=== PATIENT | female | born 1965 | race Caucasian/White ===

== ENCOUNTER → 2020-06-05 | Outpatient (CLI) | payer BC ==
[~2020-06-05] MED LIST: ALBU2.5V8 IH; CEPH500C PO; DULO60CA6 PO; METO-247 PO; OXYC1TAB22 PO; VANC1PLA9 IV; WARF2TAB96 PO; WARF4TAB64 PO
--- NOTE | 2020-06-05 13:24 | RAD ---
EXAM: Chest, 2 views. HISTORY: Short of breath. COMPARISON: None. FINDINGS: 2 views of the chest are obtained. There is mild diffuse interstitial prominence without fr ank congestion. There is no consolidation, pleural effusion or pneumothorax. The heart is normal in s ize. IMPRESSION: Mild diffuse interstitial prominence without focal infiltrate. Electronically signed by: Gaviota De Dios MD (06/05/2020 1:21 PM) [id number]
== END ==
LOC: DXRAD 12:49
PROVIDERS: ATTEND Internal Medicine Critical Care Medicine
DX: R06.02 Shortness of breath (principal); J44.9 Chronic obstructive pulmonary disease, unspecified
CPT/HCPCS: 71046

== ENCOUNTER 2020-06-10 18:11 | Inpatient (IN) | payer BC, OTHER ==
[~2020-06-10] VITALS: Ht 154.9 cm; Wt 133.1 kg
--- NOTE | 2020-06-10 18:55 | PHYS DOC ---
Past History Past Medical History: Anxiety, Diabetes, GERD, Hypertension Past Surgical History: Other Smoking: Non-smoker Alcohol Use: None Drug Use: None Adult General Chief Complaint Chief Complaint: CELLULITIS HPI HPI Patient is a 55-year-old female with a past medical history significant for multiple PEs, DVTs on warfarin with IVC filter in place complaining of swollen right lower extremity. States that [place] she fell, from ground- level and hurt her right knee. States initially it was swollen and bruised and saw her primary care physician about this. Initially thought that it was just bruising, but then felt she had developed some lower extremity cellulitis and started on antibiotics. Patient currently on Keflex every 6 day 3. States that there is been no change in the redness and swelling and is similar to previous DVT she has had in the past. States that she was scheduled for an outpatient DVT scan next week but is worried and decided to come to the emergency department. Denies any Covid/flu symptoms. Denies headache, chest pain, shortn ess of breath, abdominal pain, nausea, vomiting, dysuria, hematuria or blood in the stool. States she is able to ambulate, it just causes her discomfort, relatively constantly, 5 out of 10 and dull and achy in nature. Review of Systems Review of Systems Review of systems otherwise unremarkable except noted in HPI. Allergies Allergies Allergies Coded Allergies Type Severity Reaction Last Updated Verified Triamterene Allergy Unknown 08/29/13 Yes hydrochlorothiazide Allergy Unknown 08/29/13 Yes hydrocodone Allergy Unknown 08/29/13 Yes Physical Exam Physical Exam Constitutional: Well developed, well nourished, no acute distress, non-toxic appearance. [] HENT: Normocephalic, atraumatic, bilateral external ears normal, oropharynx moist, no oral exudates, nose normal. [] Eyes: PERRLA, EOMI, conjunctiva normal, no discharge. [] Neck: Normal range of motion, Cardiovascular:Heart rate regular rhythm, no murmur [] Lungs & Thorax: Bilateral breath sounds clear to auscultation [] Abdomen: soft, no tenderness, no masses, no pulsatile masses. [] Skin: Warm, dry, no rash Back: No tenderness, . [] Extremities: Patient's right lower extremity has 2+ pitting edema, erythema and warmth to the level superior to the right knee, left lower extremity normal. Neurovascularly intact. Neurologic: Alert and oriented X 3, normal motor function, normal sensory function, no focal deficits noted. [] Psychologic: Affect normal, judgement normal, mood normal. [] Current Patient Data Lab Results Laboratory Tests Test 06/10/20 18:35 White Blood Count 8.9 x10^3/uL (4.0-11.0) Red Blood Count 4.81 x10^6/uL (3.50-5.40) Hemoglobin 15.8 g/dL (12.0-15.5) Hematocrit 48.0 % (36.0-47.0) Mean Corpuscular Volume 100 fL (79-100) Mean Corpuscular Hemoglobin 33 pg (25-35) Mean Corpuscular Hemoglobin Concent 33 g/dL (31-37) Red Cell Distribution Width 17.0 % (11.5-14.5) Platelet Count 200 x10^3/uL (140-400) Neutrophils (%) (Auto) 73 % (31-73) Lymphocytes (%) (Auto) 13 % (24-48) Monocytes (%) (Auto) 11 % (0-9) Eosinophils (%) (Auto) 2 % (0-3) Basophils (%) (Auto) 2 % (0-3) Neutrophils # (Auto) 6.5 x10^3uL (1.8-7.7) Lymphocytes # (Auto) 1.1 x10^3/uL (1.0-4.8) Monocytes # (Auto) 0.9 x10^3/uL (0.0-1.1) Eosinophils # (Auto) 0.2 x10^3/uL (0.0-0.7) Basophils # (Auto) 0.2 x10^3/uL (0.0-0.2) Prothrombin Time 24.9 SEC (9.4-11.4) Prothromb Time International Ratio 2.5 (0.9-1.1) D-Dimer (Allyson) 1.33 mg/L (0.00-0.50) Sodium Level 142 mmol/L (136-145) Potassium Level 4.0 mmol/L (3.5-5.1) Chloride Level 103 mmol/L (98-107) Carbon Dioxide Level 35 mmol/L (21-32) Anion Gap 4 (6-14) Blood Urea Nitrogen 21 mg/dL (7-20) Creatinine 1.2 mg/dL (0.6-1.0) Estimated GFR (Cockcroft-Gault) 46.6 BUN/Creatinine Ratio 18 (6-20) Glucose Level 130 mg/dL (70-99) Calcium Level 8.7 mg/dL (8.5-10.1) Total Bilirubin 0.3 mg/dL (0.2-1.0) Aspartate Amino Transf (AST/SGOT) 34 U/L (15-37) Alanine Aminotransferase (ALT/SGPT) 38 U/L (14-59) Alkaline Phosphatase 126 U/L (46-116) Total Protein 7.7 g/dL (6.4-8.2) Albumin 3.2 g/dL (3.4-5.0) Albumin/Globulin Ratio 0.7 (1.0-1.7) EKG EKG [] Radiology/Procedures Radiology/Procedures []FINDINGS/ IMPRESSION: 1. Postoperative changes from ACL repair identified. No significant knee joint effusion. 2. Mild tricompartmental osteoarthrosis with joint space narrowing and marginal osteophytosis. 3. Mild subcutaneous edema is noted along the knee. No acute fracture. No dislocation. Electronically signed by: Stacey Villafuerte MD (06/10/2020 7:14 PM) [facility] Ultrasound report still pending. Radiologist called and stated patient has a popliteal DVT Heart Score Risk Factors: Risk Factors: DM, Current or recent (<one month) smoker, HTN, HLP, family history of CAD, obesity. Risk Scores: Risk Factors: DM, Current or recent (<one month) smoker, HTN, HLP, family history of CAD, obesity. Course & Med Decision Making Course & Med Decision Making Patient is a 55-year-old female that presents with right lower extremity swelling and tenderness Vital signs not concerning. Physical exam noted above. Patient placed on the monitor with IV access established. Laboratory analysis notable for elevated D-dimer. INR 2.5. Ultrasound notable for popliteal DVT despite therapeutic INR on warfarin. Patient started on heparin drip. Discussed findings with patient and recommended admission for continued evaluation treatment of her DVT despite therapeutic INR as this would indicate failed outpatient treatment. Patient grateful, verbalized understanding and agreed with plan of admission. [] Dragon Disclaimer Dragon Disclaimer This electronic medical record was generated, in whole or in part, using a voice recognition dictation system. Departure Departure: Impression: Primary Impression: DVT (deep venous thrombosis) Disposition: ADMITTED INPT THIS HOSP Admitting Physician: Edgar Castellanos ([facility]) Condition: STABLE Referrals: BRIAN WEBB MD (PCP) CYNDY VELASQUEZ MD Jun 10, 2020 18:55
[2020-06-10 18:57] LABS: BASO # 0.2 x10^3/uL (0.0-0.2); BASO % 2 % (0-3); EOS # 0.2 x10^3/uL (0.0-0.7); EOS % 2 % (0-3); HEMOGLOBIN 15.8 g/dL (12.0-15.5); LYMPH # 1.1 x10^3/uL (1.0-4.8); LYMPH % 13 % (24-48); MEAN CORPUSCULAR HEMOGLOBIN 33 pg (25-35); MEAN CORPUSCULAR HGB CONC 33 g/dL (31-37); MEAN CORPUSCULAR VOLUME 100 fL (79-100); MONO # 0.9 x10^3/uL (0.0-1.1); MONO % 11 % (0-9); NEUT # 6.5 x10^3uL (1.8-7.7); NEUT % 73 % (31-73); PLATELET COUNT 200 x10^3/uL (140-400); RED BLOOD COUNT 4.81 x10^6/uL (3.50-5.40); WHITE BLOOD COUNT 8.9 x10^3/uL (4.0-11.0)
[2020-06-10 19:02] LABS: CALCIUM 8.7 mg/dL (8.5-10.1); CREATININE 1.2 mg/dL (0.6-1.0); GFR 46.6
[2020-06-10 19:08] LABS: ALBUMIN 3.2 g/dL (3.4-5.0); ALBUMIN/GLOBULIN RATIO 0.7 (1.0-1.7); TOTAL BILIRUBIN 0.3 mg/dL (0.2-1.0); TOTAL PROTEIN 7.7 g/dL (6.4-8.2)
--- NOTE | 2020-06-10 19:28 | RAD ---
XR KNEE 3 VIEWS_RT 06/10/2020 6:41 PM INDICATION: Trauma, fall with right knee pain COMPARISON: None available. TECHNIQUE: 3 views of the right knee are provided. FINDINGS/ IMPRESSION: 1. Postoperative changes from ACL repair identified. No significant knee joint effusion. 2. Mild tricompartmental osteoarthrosis with joint space narrowing and marginal osteophytosis. 3. Mild subcutaneous edema is noted along the knee. No acute fracture. No dislocation. Electronically signed by: Stacey Villafuerte MD (06/10/2020 7:14 PM) [facility]
[2020-06-10] MEDS ORDERED: HEPARIN 25,000UTS/250ML PREMIX 250 ML IV PRN (21:15)
[2020-06-10] MEDS ORDERED: HEPARIN for IV BOLUS 10,000 UNIT/10 ML VIAL. IV PRN ×3 (21:15)
[2020-06-10] MEDS ORDERED: HEPARIN for IV BOLUS 10,000 UNIT/10 ML VIAL. IV ONE (21:15)
--- NOTE | 2020-06-10 21:17 | RAD ---
US DPLX VENOUS EXTREMITY LOWER RT 06/10/2020 8:10 PM Clinical Information: DVT Comparison: None. Technique: Multiple grayscale, color Doppler, and spectral Doppler sonographic images of the lower ex tremity venous structures were obtained. Findings: The right common femoral and superficial femoral veins exhibit normal compression, respiratory phasic ity, and augmentation. No intraluminal thrombi are identified. There is partial nonocclusive thrombus involving the right mid to distal popliteal vein. Peroneal vein is not well visualized. Color Dopple r flow is demonstrated in the right posterior tibial veins. Greater saphenous veins are patent at the saphenofemoral junction. Impression: 1. Partial nonocclusive thrombus identified within the right mid to distal popliteal vein. FOR INTERNAL CODING PURPOSES Critical result: Findings discussed with Dr. Ramires at 06/10/2020 8:51 PM. RESULT CODE: (C) Electronically signed by: Stacey Villafuerte MD (06/10/2020 8:52 PM) [facility]
[2020-06-10] MEDS ORDERED: oxyCODONE/APAP 5/325 1 TAB TABLET PO ONE (22:30)
[2020-06-10 22:43] VITALS: BP 126/92
--- NOTE | 2020-06-10 23:35 | NUR ---
The patient, GONZALES PUCKETT, 55 y/o, F admitted by DULCE MARIA COHEN MD, was given written information regarding hospital policies, unit procedures and contact persons. Valuables were checked and vitals obtained. Pt is A&OX4 and able to ambulate to toilet on own. Pt has no complaints of pain at this time. Will continue to monitor.
[2020-06-11] MEDS ORDERED: METO-247 PO (03:21)
[2020-06-11] MEDS ORDERED: DULO60CA6 PO (03:21)
[2020-06-11] MEDS ORDERED: WARF4TAB64 PO (03:21)
[2020-06-11] MEDS ORDERED: ALBU2.5V8 IH (03:21)
[2020-06-11] MEDS ORDERED: WARF2TAB96 PO (03:21)
[2020-06-11] MEDS ORDERED: CEPH500C PO (03:21)
[2020-06-11] MEDS ORDERED: VANC1PLA9 IV (04:15)
[2020-06-11] MEDS ORDERED: OXYC1TAB22 PO (04:15)
[2020-06-11] MEDS: oxyCODONE/APAP 10/325 1 TAB TABLET PO PRN ×3 (04:27→17:21)
[2020-06-11 05:58] VITALS: BP 103/65
[2020-06-11] MEDS ORDERED: VANCOMYCIN 2 GM in IV NORMAL SALINE 500ML 500 ML IV ONE (07:30)
[2020-06-11] MEDS ORDERED: VANCOMYCIN PER PHARMACY MC PRN (07:30)
[2020-06-11] MEDS ORDERED: VANCOMYCIN 1 GM in IV NORMAL SALINE 250ML 250 ML IV SCH (09:00)
--- NOTE | 2020-06-11 09:43 | HP ---
ADMIT DATE: 06/10/2020 ATTENDING PHYSICIAN: Dr. Cohen. CHIEF COMPLAINT: Swelling, right lower extremity. 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 She has had a longstanding history of pulmonary embolus and DVT that is recurrent. She has an inferior vena cava filter in place. She also has cellulitis of the right lower extremity. Her INR is therapeutic. She has failed outpatient oral antibiotics. She was admitted for heparin drip initially. This was stopped. Coumadin will be restarted. She had been on Keflex. I started vancomycin earlier this morning. She describes her discomfort as 5/10. There is localized cellulitis along the lower extremities. PAST MEDICAL HISTORY: Significant for recurrent DVTs. She has a postphlebitic syndrome. In addition, she has hypertension and chronic low back pain. CURRENT MEDICATIONS: Reviewed. She was taking Coumadin 2 mg alternating with 4 mg every other day. Her last INR was 2.5 and therapeutic. In addition, she was on albuterol, Cymbalta, metoprolol, oxycodone, and alternating Coumadin dose. ALLERGIES: SHE HAS ALLERGIES TO HYDROCHLOROTHIAZIDE, HYDROCODONE, AND TRIAMTERENE. Exact reactions unclear. SOCIAL HISTORY: She is a smoker, occasionally. No alcohol use. 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 FAMILY HISTORY: Father of complications of lung cancer at age 59. Mom of complications of COPD. She was 60-65. 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 REVIEW OF SYSTEMS: Significant for the chronic leg swelling, dyspnea with minimal exertion. Otherwise, she has no other complaints except for the swelling. All other systems reviewed and turned to be negative. PHYSICAL EXAMINATION: GENERAL: When I saw her, this is a pleasant, middle-aged female. INITIAL VITAL SIGNS: Showed a blood pressure 126/92 mmHg, pulse is 91 and regular, temperature 98.6 degrees Fahrenheit, oxygen saturation 93% on 2 liters nasal cannula. HEENT: Head is without trauma. Pupils are reactive. Sclerae nonicteric. Oropharynx clear. NECK: Supple, no bruits. LUNGS: Clear to auscultation. CARDIOVASCULAR: Showed regular heart tones. No gallops. ABDOMEN: Obese, protuberant. No organomegaly. Bowel sounds are hypoactive. EXTREMITIES: Showed no cyanosis. She does have redness, erythema on the lower portion of the right leg extending down to ankles to right below the knee. There are no open sores. SKIN: Warm and dry. NEUROLOGIC: Focally intact. Speech is fluent. [place] were intact. LABORATORY DATA: Admission hemoglobin was 15.8 g/dL with white count of 8900. Electrolytes within normal range. Creatinine 1.2 mg percent, nonfasting blood sugar 130. INR was therapeutic at 2.5. ASSESSMENT: 1. A 55-year-old female with cellulitis of the right lower extremity, refractory to outpatient care. Most likely this is a Staphylococcus infection. 2. Recurrent DVTs and PE. She has an inferior vena cava filter. 3. She has therapeutic INRs. 4. She has a postphlebitic syndrome. 5. Essential hypertension. PLAN: 1. Admit to the inpatient unit. 2. We will continue her vancomycin intravenously. 3. She is not considered a failure on Coumadin. I did give her information regarding Xarelto and Eliquis in the current treatment of deep vein thrombosis. I cited 2 articles from 2011 and 2013 indicating that both is a factor Xa inhibitors have shown to be equally effective in treatment of DVT. She will consider this. 4. I will give her a dose of Lasix today for swelling. 5. Tentative discharge plans in a day or two. DULCE MARIA COHEN MD DR: HELLEN/laura JOB#: [id number] / [id number] ecc ,
[2020-06-11 10:41] VITALS: BP 106/71
[2020-06-11] MEDS: FUROSEMIDE 80 MG TABLET PO SCH (10:50)
--- NOTE | 2020-06-11 12:57 | NUR ---
Pharmacy Vancomycin Dosing Note S:Consulted to monitor and dose vancomycin started . O:GONZALES PUCKETT is a 55 year old F with Cellulitis, . Height: 5 feet, 1 inches Weight: 133.2 kg [place] Body Weight: 47.80 Adjusted Body Weight: 81.96 Dosing Weight: Actual Other Antibiotics: LABS: Last BUN: 21 Last Creatinine: 1.2 Creatinine Clearance: 68.5 Last WBC: 8.9 Last Procalcitonin: Tmax (past 24 hours): Microbiology: I/O: Drug Levels: Last level: on at Last dose given at Vancomycin Dosing: Loading Dose: 2000 mg x1 Dosing Weight: Actual Target Trough: 10-20 A: Based on: physician request for dosing P: 1. Begin Vancomycin 2000 mg IV q12h 2. Follow up Trough level on 06/12/20 at 1930 3. Pharmacy will continue to monitor, follow and adjust therapy as needed. KURTIS KING, 06/11/20 [id number]
[2020-06-11 15:22] VITALS: BP 124/69
[2020-06-11] MEDS ORDERED: WARFARIN 4 MG TABLET. PO ONE (16:00)
[2020-06-11 18:50] VITALS: BP 113/55
[2020-06-11] MEDS: VANCOMYCIN 2 GM in IV NORMAL SALINE 500ML 500 ML IV SCH (20:14)
[2020-06-11] MEDS: LACTOBACILLUS RHAMNOSUS GG 1 CAPSULE. PO SCH (20:14)
[2020-06-11 23:20] VITALS: BP 131/81
[2020-06-12] MEDS: oxyCODONE/APAP 10/325 1 TAB TABLET PO PRN ×2 (02:21→08:49)
[2020-06-12 05:12] VITALS: BP 117/68
[2020-06-12 05:59] LABS: HEMATOCRIT 44.2 % (36.0-47.0); HEMOGLOBIN 14.5 g/dL (12.0-15.5); RED BLOOD COUNT 4.43 x10^6/uL (3.50-5.40); RED CELL DISTRIBUTION WIDTH 16.7 % (11.5-14.5); WHITE BLOOD COUNT 6.8 x10^3/uL (4.0-11.0)
[2020-06-12] MEDS: VANCOMYCIN 2 GM in IV NORMAL SALINE 500ML 500 ML IV SCH (07:40)
[2020-06-12] MEDS: LACTOBACILLUS RHAMNOSUS GG 1 CAPSULE. PO SCH (07:41)
[2020-06-12] MEDS: FUROSEMIDE 80 MG TABLET PO SCH (09:00)
--- NOTE | 2020-06-12 09:05 | DS ---
DATE OF DISCHARGE: 06/12/2020 ATTENDING PHYSICIAN: Dr. Cohen. FINAL DISCHARGE DIAGNOSES: 1. Cellulitis of the right leg, refractory to oral antibiotics. 2. Recurrent deep venous thrombosis and pulmonary embolism. 3. History of inferior vena cava filter. 4. She has a therapeutic INR. 5. Postphlebitic syndrome. 6. Morbid obesity. 7. Essential hypertension. 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 She has recurrent deep vein thrombosis, pulmonary embolism. She has been on Coumadin alternating 2 mg to 4 mg every other day. Her INR was therapeutic. Her swelling in the right leg is due to cellulitis has been refractory to oral cephalexin. I suspect this is most likely a resistant strain of Staphylococcus aureus. She was admitted for further treatment and evaluation. PHYSICAL EXAMINATION: Please see the dictated note. PERTINENT LABORATORY AND X-RAY STUDIES: Admission hemoglobin was 15.8 g/dL with white count of 8900. Her electrolytes were within normal range with a creatinine of 1.2 mg/dL, BUN 21, sodium 142 mEq per liter, potassium 4.0 mEq per liter and a nonfasting blood sugar ____ mg/dL. INR was therapeutic at 2.5. She had ultrasound done, which showed chronic occlusion, but no new clots identified in the right venous system of her leg. COURSE IN THE HOSPITAL: The patient was admitted. We continued her Coumadin the same dosage. I started on vancomycin. She received 2 full days of intravenous vancomycin. Lasix was administered with improvement of her swelling and redness, erythema and infection was dissipating. On the third hospital day, her vital signs are stable. She felt well, she wanted to go home. I felt this is reasonable. Therefore, we can treat her with a combination of Bactrim-DS one b.i.d. and doxycycline 100 mg b.i.d. for 7 more days, Coumadin 2 mg alternating with 4 mg every other day and continuation of her home meds including metoprolol, Cymbalta, oxycodone p.r.n. pain and albuterol. She will follow up with her regular physician as scheduled. The patient was then discharged from our hospital in stable condition with explicit instructions and followup care. Total discharge time spent 41 minutes. DULCE MARIA COHEN MD DR: HELLEN/laura JOB#: [id number] / [id number] Keeley Doyle
--- NOTE | 2020-06-12 10:37 | NUR ---
PATIENT IS DISCHARGED HOME, DISCHARGE INSTRUCTIONS AND PRESCRIBED MEDS REVIEWED , PATIENT VERBALIZED UNDERSTANDING. PATIENT LEFT ROOM VIA W/C ACCOMP BY THIS RN. PATIENT IS TAKEN TO HER PERSONAL VEHICLE ON THE ER PARKING LOT BY SECURITY.
== END 2020-06-12 10:40 | disposition home or self-care (01) | DRG 603 ==
LOC: ER 18:11 → 1 SOUTH 21:43
PROVIDERS: ADMIT Hospitalist; ATTEND Hospitalist
DX: L03.115 Cellulitis of right lower limb (principal); Z68.43 Body mass index [BMI] 50.0-59.9, adult; I10 Essential (primary) hypertension; E11.9 Type 2 diabetes mellitus without complications; G89.29 Other chronic pain; F41.9 Anxiety disorder, unspecified; K21.9 Gastro-esophageal reflux disease without esophagitis; M54.5 Low back pain; F17.200 Nicotine dependence, unspecified, uncomplicated; I87.009 Postthrombotic syndrome without complications of unspecified extremity; E66.01 Morbid (severe) obesity due to excess calories; B95.8 Unspecified staphylococcus as the cause of diseases classified elsewhere; Z86.718 Personal history of other venous thrombosis and embolism; Z86.711 Personal history of pulmonary embolism; Z79.01 Long term (current) use of anticoagulants; Z88.8 Allergy status to other drugs, medicaments and biological substances; Z95.828 Presence of other vascular implants and grafts; Z82.5 Family history of asthma and other chronic lower respiratory diseases; Z80.1 Family history of malignant neoplasm of trachea, bronchus and lung
CPT/HCPCS: 36415; 73562; 80053; 85025; 85027; 85379; 85610; 85730; 93971; 96374; J1644; J3370; J7040; 99285-25

== ENCOUNTER → 2020-07-06 | Outpatient (CLI) | payer BC ==
[2020-06-12 05:12] VITALS: BP 117/68
--- NOTE | 2020-07-06 09:39 | RAD ---
PQRS Compliance Statement: One or more of the following individualized dose reduction techniques were utilized for this examinat ion: 1. Automated exposure control 2. Adjustment of the mA and/or kV according to patient size 3. Use of iterative reconstruction technique CT THORAX WO 07/06/2020 7:46 AM Indication: Shortness of breath. Asthma, COPD COMPARISON: None available. TECHNIQUE: Multiple axial CT images of the chest were obtained without intravenous contrast utilizing high-resolution protocol. Coronal and sagittal reformats are provided. FINDINGS: There is a 3 mm subpleural solid noncalcified pulmonary nodule in the lateral left lower lobe (series 4, image 28). No pleural effusions, pulmonary vascular congestion or pneumothorax. Minimal subpleura l interstitial changes noted at the right lung base. There is no air-trapping. No traction bronchiect asis. No groundglass changes. No honeycombing identified. Calcified mediastinal lymph nodes are ident ified suggesting sequela prior granulomatous exposure. No pathologically enlarged thoracic lymph node s. Heart size within normal limits. Thoracic aorta is normal in course and caliber. Mild hepatomegaly . No suspicious osseous abnormality is identified. IMPRESSION: 1. 3 mm subpleural nodule identified in the lateral left lower lobe. Fleischner guidelines for incide ntally detected pulmonary nodules suggests no routine follow-up for low risk patients and optional CT at 12 months for high risk patients with solid noncalcified pulmonary nodules less than 6 mm in size . 2. No CT findings to suggest interstitial lung disease. Electronically signed by: Stacey Villafuerte MD (07/06/2020 9:37 AM) [facility]
== END ==
LOC: CT 07:39
PROVIDERS: ATTEND Internal Medicine Pulmonary Disease
DX: R91.1 Solitary pulmonary nodule (principal); R16.0 Hepatomegaly, not elsewhere classified; R06.02 Shortness of breath
CPT/HCPCS: 71250

== ENCOUNTER 2021-06-06 22:15 | Observation (INO) | payer BC, OTHER ==
[~2021-06-06] VITALS: Ht 167.6 cm; Wt 127.7 kg
[~2021-06-06 22:15] MED LIST changes: -DULO60CA6 PO; +DULO60CA7 PO
--- NOTE | 2021-06-06 22:21 | PHYS DOC ---
Past History Past Medical History: Anxiety, Arrhythmia, CAD, COPD, Diverticulitis, Diabetes, DVT, GERD, Hypertension, Seizure Additional Past Medical Histor: PE Past Medical History Recurrent cellulitis, morbid obesity Past Surgical History: Appendectomy, Other Additional Past Surgical Histo: bowel resection surgery, Past Surgical History Vena cava filter Smoking: Non-smoker Alcohol Use: None Drug Use: None General Adult HPI: HPI: ".. I started having a really fast heart rate.. after a coughing episode.. it wi ll not slow down.. 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 Pt. previously employed at [employer] [place]. Pt. given 6 and then 12 mg of adenosine with no change in rhythm by paramedics. Patient does have a history of hypertension. Patient follows with Fidencio Marshall NP for cardiology and Dr. Webb for primary. Patient is on Coumadin patient states she has been compliant with the meds. Patient denies any excessive caffeine use. Only had 1 cup of coffee today. Patient is having some central chest pain none radiating at this time. Patient rates pain as 8 out of 10. Heart rate on arrival is 170 -180 and appears to be a P SVT by hx and appearance. Patient does have significant past medical history of recurrence episodes of cellulitis, DVTs, pulmonary embolisms, morbid obesity, hypertension, GERD, sleep apnea, deconditioning. Patient has had numerous abdomen surgeries for large incisional hernia, bariatric surgery, vena cava filter, and laparotomy. Patient is on Coumadin to maintain a therapeutic INR and does home level checks. Patient reports the last home level was 2.7. Patient is oxygen tentative 2 L normally. Patient currently requiring 3 L to stay above 90%. Review of Systems: Review of Systems: Constitutional: Denies fever or chills Eyes: Denies change in visual acuity HENT: Denies nasal congestion or sore throat Respiratory: Complains of cough and shortness of breath Cardiovascular: Complains of chest pain GI: Denies abdominal pain, nausea, vomiting, bloody stools or diarrhea : Denies dysuria Musculoskeletal: Denies back pain or joint pain Integument: Denies rash Neurologic: Denies headache, focal weakness or sensory changes Endocrine: Denies polyuria or polydipsia Lymphatic: Denies swollen glands Psychiatric: Denies depression or anxiety Family History: Family History: Noncontributory to presentation Current Medications: Current Meds: See nursing for home meds Allergies: Allergies: Allergies Coded Allergies Type Severity Reaction Last Updated Verified hydrochlorothiazide Allergy Unknown 08/29/13 Yes hydrocodone Allergy Unknown 08/29/13 Yes triamterene Allergy Unknown 08/29/13 Yes Physical Exam: PE: Constitutional: Moderate acute distress, non-toxic appearance. [] HENT: Normocephalic, atraumatic, bilateral external ears normal, oropharynx moist, no oral exudates, nose normal. Poor dentition Eyes: PERRLA, EOMI, conjunctiva normal, no discharge. Glasses. Neck: Normal range of motion, no tenderness, supple, no stridor. More than 17 inches circumference Cardiovascular: Tachycardia heart rate regular rhythm, no murmur [] PMI to the left. Bedside monitor shows a supraventricular tachycardia Lungs & Thorax: Bilateral breath sounds equal apex with basilar crackles bilaterally on auscultation [] Abdomen: Bowel sounds creased, soft, no tenderness, no masses, no pulsatile masses. Multiple surgery scars Skin: Warm, dry, no erythema, no rash. Mild venous stasis changes. Back: No tenderness, no CVA tenderness. [] Extremities: No tenderness, no cyanosis, no clubbing, ROM intact, neuro and edema. [] No obvious inflammation or cording. Scarring right lower leg Neurologic: Alert and oriented X 3, moves all extremities on request, has distal sensory,, no focal deficits noted. [] Psychologic: Affect anxious, judgement normal, mood normal. [] EKG: EKG: My interpretation EKG shows a supraventricular tachycardia at 169 []. Does have a strain pattern time of EKG is 20 to 22 hours My interpretation EKG #2 shows sinus rhythm at 89 bpm sinus rhythm. Strain pattern and T waves particularly lateral leads. Time of EKG is 2315 hrs. Radiology/Procedures: Radiology/Procedures: [] [address] [place] [id number] IMAGING REPORT Signed PATIENT: ANTONIO BARRERA EACCOUNT: [id number] : 06/17/1945 LOCATION: ER AGE: 75 SEX: M EXAM STATUS: REG ER ORD. PHYSICIAN: ALBERT PERDOMO MD REASON: head injury PROCEDURE: CT HEAD AND CERVICAL SPINE WO EXAM: CT HEAD WITHOUT IV CONTRAST CLINICAL HISTORY: Reason: head injury / Spl. Instructions: / History: COMPARISON: None. TECHNIQUE: Routine CT of the head without contrast. Soft tissues and bone windows were reviewed. PQRS compliance statement - One or more of the following individualized dose reduction techniques were utilized for this study: 1. Automated exposure control 2. Adjustment of the mA and/or kV according to patient size 3. Use of iterative reconstruction technique FINDINGS: There is no evidence of hemorrhage, mass or extra-axial fluid collection. Harris-white differentiation is maintained with no evidence of edema. Subcortical, periventricular as well as deep white matter foci of hypoattenuation likely changes of chronic small vessel disease. There is no mass effect or shift of the intracranial structures. The ventricles and cerebral sulci are prominent for the patients stated age consistent with generalized cerebral volume loss. The cerebellum and brainstem are unremarkable. The calvarium demonstrates no evidence of fracture or focal lesion. There is normal aeration of the visualized paranasal sinuses and mastoid air cells. The visualized portions of the orbits are normal. IMPRESSION: No evidence for acute intracranial process. EXAM: CT CERVICAL SPINE WITHOUT IV CONTRAST CLINICAL HISTORY: Reason: head injury / Spl. Instructions: / History: COMPARISON: None available. TECHNIQUE: Helical CT of the cervical spine was performed. Axial, coronal and sagittal reformatted images were also performed. PQRS compliance statement - One or more of the following individualized dose reduction techniques were utilized for this study: 1. Automated exposure control 2. Adjustment of the mA and/or kV according to patient size 3. Use of iterative reconstruction technique FINDINGS: Vertebral body heights are preserved. No spondylolisthesis. Bulky facet joint degenerative changes are seen. Anterior endplate osteophytes. Atlantodental degenerative changes are seen. Mild C4-5, moderate to severe C5-6, C6-7 disc height loss. IMPRESSION: 1. Multilevel spondylosis as above 2. Negative acute fracture or subluxation. Electronically signed by: Myles Gutierrez MD (06/07/2021 1:19 AM) [facility] DICTATED AND SIGNED BY: MYLES GUTIERREZ MD DATE: 06/07/21112 CC: ALBERT PERDOMO MD; HARSH HARTLEY MD ~MTH0 0 Heart Score: C/O Chest Pain: Yes HEART Score for Chest Pain: HEART Score for Chest Pain Response (Comments) Value History Highly Suspicious [address] Depression 2 Age >45 - < 65 1 Risk Factors 1 or 2 Risk Factors 1 Troponin < Normal Limit 0 Total 6 Risk Factors: Risk Factors: DM, Current or recent (<one month) smoker, HTN, HLP, family history of CAD, obesity. Risk Scores: Score 0 - 3: 2.5% MACE over next 6 weeks - Discharge Home Score 4 - 6: 20.3% MACE over next 6 weeks - Admit for Clinical Observation Score 7 - 10: 72.7% MACE over next 6 weeks - Early Invasive Strategies Course & Med Decision Making: Course & Med Decision Making Pertinent Labs and Imaging studies reviewed. (See chart for details) Patient reports less chest pain with a slower heart rate at 2330 hrs. Currently rating pain in chest 4 out of 10. Heart rate has dropped into the 90s with the start of Cardizem. Consult to Cardiology while pt in ED- Hold. ( No current beds in Hospital due nursing shortage., Multiple hospital holding pts in ED- no transfer at this time) Discussed presentation, testing and tx. plan with Emanuel Pierson- admit to tele.. if bed becomes available here. Impression: 1. PSVT- 2. Hx. CADz 3. CP 4. HTN 5. INR=5.8 6. Macrocytic Hyperchromic Indices, Elevat Hgb 19.2 7. Morbid Obesity 8. Oxygen Dependent - 2 lit. 9. Elevated AST 46k Alt 62, Alk Phos 118 10.Elevated CK 214 11.Drug Screen + Marijuana 12.Hx. Recurrent DVT's, PE's - ( Has Vena cava filter and on Coumadin) [] Dragon Disclaimer: Dragon Disclaimer: This electronic medical record was generated, in whole or in part, using a voice recognition dictation system. Departure Departure: Referrals: BRIAN WEBB MD (PCP) Marquise Disclaimer This chart was dictated in whole or in part using Voice Recognition software in a busy, high-work load, and often noisy Emergency Department environment. It may contain unintended and wholly unrecognized errors or omissions. Dragon Disclaimer This chart was dictated in whole or in part using Voice Recognition software in a busy, high-work load, and often noisy Emergency Department environment. It may contain unintended and wholly unrecognized errors or omissions. ALBERT PERDOMO MD Jun 06, 2021 22:21
[2021-06-06] MEDS ORDERED: dilTIAZem VIAL 125 MG in IV NORMAL SALINE 100ML 100 ML IV ONE (22:30)
[2021-06-06] MEDS ORDERED: NITROGLYCERIN OINT 1 GM PACKET. TP ONE (22:30)
[2021-06-06] MEDS ORDERED: IV RINGERS SOLUTION,LACTATED 1,000 ML IV SCH (22:30)
[2021-06-06] MEDS ORDERED: dilTIAZem 25 MG/5 ML VIAL IVP ONE (22:30)
[2021-06-06] MEDS ORDERED: MORPHINE SULFATE 10 MG/ML SYRINGE. IVP ONE (22:30)
[2021-06-06] MEDS ORDERED: IV NORMAL SALINE 100ML 100 ML ONE (22:32)
[2021-06-06 22:51] LABS: BASO # 0.1 x10^3/uL (0.0-0.2); BASO % 1 % (0-3); EOS # 0.2 x10^3/uL (0.0-0.7); EOS % 3 % (0-3); HEMATOCRIT 57.2 % (36.0-47.0); HEMOGLOBIN 19.2 g/dL (12.0-15.5); LYMPH # 1.6 x10^3/uL (1.0-4.8); LYMPH % 21 % (24-48); MEAN CORPUSCULAR HEMOGLOBIN 36 pg (25-35); MEAN CORPUSCULAR HGB CONC 34 g/dL (31-37); MEAN CORPUSCULAR VOLUME 107 fL (79-100); MONO # 0.9 x10^3/uL (0.0-1.1); MONO % 12 % (0-9); NEUT # 4.7 x10^3uL (1.8-7.7); NEUT % 63 % (31-73); PLATELET COUNT 148 x10^3/uL (140-400); RED BLOOD COUNT 5.38 x10^6/uL (3.50-5.40); RED CELL DISTRIBUTION WIDTH 14.6 % (11.5-14.5); WHITE BLOOD COUNT 7.5 x10^3/uL (4.0-11.0)
--- NOTE | 2021-06-06 22:51 | EKG ---
[address] [address] Test Date: 2021-06-06 Test Time: 22:22:47 Pat Name: GONZALES PUCKETT Department: Room: Gender: F Vein Access Technician: : 1965 Requested By: ALBERT PERDOMO Order Number: [id number] Reading MD: Kwan Guajardo Measurements Intervals [place] Rate: 169 P: [place]: QRS: 29 QRSD: 74 T: 54 QT: 260 QTc: 441 Interpretive Statements SUPRAVENTRICULAR TACHYCARDIA Electronically Signed On 06-07-2021 14:25:06 FEED ELEVATOR WORKER by Kwan Guajardo
[2021-06-06 23:03] LABS: CALCIUM 8.5 mg/dL (8.5-10.1); CREATININE 1.4 mg/dL (0.6-1.0); GFR 38.9; POTASSIUM 4.1 mmol/L (3.5-5.1)
[2021-06-06 23:14] LABS: ALBUMIN 3.4 g/dL (3.4-5.0); DIRECT BILIRUBIN 0.1 mg/dL (0.0-0.2); MAGNESIUM 2.1 mg/dL (1.8-2.4); TOTAL BILIRUBIN 0.2 mg/dL (0.2-1.0); TOTAL PROTEIN 7.5 g/dL (6.4-8.2)
--- NOTE | 2021-06-06 23:53 | RAD ---
EXAM: AP View of the chest DATE: 06/06/2021 10:33 PM INDICATION: Reason: cp / Spl. Instructions: / History: COMPARISON: No Prior FINDINGS: The heart is not enlarged. Mediastinal and hilar contours are normal. Patchy left lung base airspace opacities may represent atelectasis or developing consolidation. No pleural effusion or pneumothorax. IMPRESSION: Patchy left lung base airspace opacities may represent atelectasis or developing consolidation. Electronically signed by: Myles Garcia MD (06/06/2021 11:51 PM) KATRIN
[2021-06-07] MEDS ORDERED: ONDANSETRON PF 4 MG/2 ML VIAL. IVP PRN
[2021-06-07] MEDS ORDERED: ACETAMINOPHEN 325 MG TABLET PO PRN
[2021-06-07] MEDS ORDERED: MORPHINE SULFATE 4 MG/ML DISP.SYRIN. IV ONE (01:15)
--- NOTE | 2021-06-07 01:23 | EKG ---
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
[2021-06-07 01:26] LABS: INFLUENZA A PATIENT NEGATIVE (NEGATIVE); INFLUENZA B PATIENT NEGATIVE (NEGATIVE)
[2021-06-07 03:03] VITALS: BP 154/96
[2021-06-07 06:05] VITALS: BP 150/74
[2021-06-07 06:13] LABS: BASO # 0.1 x10^3/uL (0.0-0.2); BASO % 1 % (0-3); EOS # 0.2 x10^3/uL (0.0-0.7); EOS % 4 % (0-3); HEMATOCRIT 51.1 % (36.0-47.0); HEMOGLOBIN 17.2 g/dL (12.0-15.5); LYMPH # 1.7 x10^3/uL (1.0-4.8); LYMPH % 24 % (24-48); MEAN CORPUSCULAR HEMOGLOBIN 36 pg (25-35); MEAN CORPUSCULAR HGB CONC 34 g/dL (31-37); MEAN CORPUSCULAR VOLUME 106 fL (79-100); MONO # 0.8 x10^3/uL (0.0-1.1); MONO % 12 % (0-9); NEUT # 4.2 x10^3uL (1.8-7.7); NEUT % 59 % (31-73); PLATELET COUNT 133 x10^3/uL (140-400); RED BLOOD COUNT 4.84 x10^6/uL (3.50-5.40); RED CELL DISTRIBUTION WIDTH 14.8 % (11.5-14.5)
[2021-06-07] MEDS ORDERED: EMPA10TA PO (06:14)
[2021-06-07] MEDS ORDERED: METO5TAB55 PO (06:14)
[2021-06-07] MEDS ORDERED: CYCL15CA20 PO (06:14)
[2021-06-07] MEDS ORDERED: DIPH25CA58 PO (06:14)
[2021-06-07] MEDS ORDERED: METF500T16 PO (06:14)
[2021-06-07] MEDS ORDERED: MELA3TAB4 PO (06:14)
[2021-06-07] MEDS ORDERED: MORPHINE SULFATE 4 MG/ML DISP.SYRIN. IV PRN (06:15)
[2021-06-07 06:22] LABS: CALCIUM 8.1 mg/dL (8.5-10.1); CREATININE 1.4 mg/dL (0.6-1.0); GFR 38.9; POTASSIUM 4.1 mmol/L (3.5-5.1)
--- NOTE | 2021-06-07 10:48 | HP ---
DATE OF SERVICE: 06/07/2021 ADMIT DATE: 06/06/2021 ATTENDING PHYSICIAN: Dr. Castellanos. CHIEF COMPLAINT: Chest pain. 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 She has a longstanding history of cardiac issues and supraventricular tachycardia. She was coughing, went into an SVT. She was given 2 doses of Adenocard en route by paramedics. Following the episode, she developed chest pressure, shortness of breath. She was admitted to the hospital for serial enzymes and formal Cardiology consultation. She sees Darshana Marshall at the [facility] office under Dr. Malone. Her primary care physician, Dr. Keeley Webb. PAST MEDICAL HISTORY: Significant for pulmonary emboli, on Coumadin, therapeutic doses; generalized anxiety; morbid obesity, weight in excess of 350 pounds; coronary artery disease; COPD; diverticulitis; type 2 diabetes; essential hypertension; idiopathic seizure disorder. ALLERGIES: She has allergies to HYDROCHLOROTHIAZIDE, HYDROCODONE and TRIAMTERENE. CURRENT MEDICATIONS: At home were reviewed. She was taking Coumadin 2 mg alternating with 4 mg, oxycodone p.r.n., metoprolol 100 mg daily, Jardiance, Cymbalta, cyclobenzaprine, albuterol, and metformin. SOCIAL HISTORY: She was a smoker up to several years ago. No alcohol use. She has since retired. FAMILY HISTORY: Noncontributory. REVIEW OF SYSTEMS: Significant for the increased gas and belching, morbid obesity, some sleep apnea. All other systems reviewed and turned to be negative. PHYSICAL EXAMINATION: GENERAL: When I saw her, this is a pleasant, middle-aged female. VITAL SIGNS: Her initial vital signs showed a blood pressure of 150/74, pulse is now down to 88 and regular. She was afebrile. Oxygen saturation 93% on 2 liters by nasal cannula. HEENT: Head is without trauma. Pupils are reactive. Sclerae nonicteric. Oropharynx clear. NECK: Supple, no bruits. LUNGS: Clear. CARDIOVASCULAR: Regular heart tones. ABDOMEN: Soft. EXTREMITIES: Show no cyanosis or edema. NEUROLOGIC FINDINGS: Focally intact. PERTINENT LABORATORY STUDIES: Hemoglobin 17.2 g/dL. Chemistry panel, the first troponin level was 10. Electrolytes within normal range. Creatinine is 1.4 mg/dL. ASSESSMENT: 1. A 56-year-old female with supraventricular tachycardia, treated in the ED. 2. Atypical chest pain. 3. Chronic anticoagulation with Coumadin for pulmonary emboli. 4. Morbid obesity. 5. Diabetes. 6. Essential hypertension. 7. History of gastroesophageal reflux disease. PLAN: 1. Observation status. 2. Admission to the hospital with telemetry monitoring. 3. Serial enzymes. 4. Formal Cardiology consultation. HELLEN/HAFSA/FELI DR: Ugo TID: [id number] CC: KEELEY WEBB MD
--- NOTE | 2021-06-07 12:57 | DS ---
DATE OF DISCHARGE: 06/07/2021 ATTENDING PHYSICIAN: Dr. Castellanos. FINAL DISCHARGE DIAGNOSES: 1. Atypical chest pain. 2. Probable stress-demand ischemia without symptoms. 3. Morbid obesity. 4. Supraventricular tachycardia, treated. 5. History of pulmonary embolus, on chronic anticoagulation. 6. Gastroesophageal reflux disease. 7. Morbid obesity. Weight 128 kg. HISTORY AND PHYSICAL: This is a 56-year-old female, on chronic anticoagulation. She had a coughing episode resulting in palpitations and tachycardia. She was found to be in supraventricular tachycardia. En route from an EMS personnel, she received 2 doses of Adenocard. By the time she got to the ED, she had converted to a sinus rhythm. She had atypical chest pain. She was admitted for observation overnight for serial enzymes and formal Cardiology consultation. PHYSICAL EXAMINATION: Please see my dictated note. PERTINENT LABORATORY AND X-RAY STUDIES: Her hemoglobin on admission was 17.2 g in a hemoconcentrated state. Her sodium was 140 mEq/L, potassium 4.1, creatinine 1.4 mg/dL. The first troponin and the fourth generation sensitive troponin was 10. The second one was 157 and the third one was down to 131. EKG was nondiagnostic. Chest x-ray showed no acute infiltrates or decompensation. She may have some atelectasis from her ____. COURSE IN THE HOSPITAL: The patient was admitted. She had serial enzymes, which showed a slight elevation in her troponin. I felt this is due to stress-demand ischemia. We are in the process of getting her having a formal consultation with a ballistic technician, she declined. She wanted to see her personal ballistic technician through the [facility] system. She was asymptomatic. She was pain-free. I felt this was reasonable. Therefore, after speaking with her and observing her. I do not believe that she has anything acute going on. I believe the enzymes are elevated due to the episode of SVT. Therefore, she was discharged home with a strong encouragement to follow up with her ballistic technician. She already has supplemental oxygen. Her home medications are unchanged. She should continue her Coumadin daily dose 4 mg daily, albuterol, Flexeril p.r.n., diphenhydramine, Cymbalta, Jardiance, melatonin, metformin, Reglan, metoprolol 100 mg daily, oxycodone p.r.n. pain, and warfarin dose is unchanged. She was discharged then from our hospital in a stable condition with explicit drug and followup care. HELLEN/JOSHUA/FELI DR: Ugo TID: [id number] CC: BRIAN WEBB MD, Darshana Marshall APRN
[2021-06-07 16:22] LABS: HDLC 31 mg/dL (40-60)
[2021-06-07 16:23] LABS: TRIGLYCERIDES 789 mg/dL (0-150); VLDLC 157 mg/dL (0-40)
== END 2021-06-07 11:31 | disposition home or self-care (01) ==
LOC: ER 22:15 → INTOOBSV 23:50 → ER HOLD 23:50 → 1 SOUTH 06-07 02:21
PROVIDERS: ADMIT Hospitalist; ATTEND Hospitalist
DX: I47.1 Supraventricular tachycardia (principal); Z20.822 Contact with and (suspected) exposure to COVID-19; R07.89 Other chest pain; E11.9 Type 2 diabetes mellitus without complications; I10 Essential (primary) hypertension; K21.9 Gastro-esophageal reflux disease without esophagitis; E66.01 Morbid (severe) obesity due to excess calories; F41.1 Generalized anxiety disorder; G40.909 Epilepsy, unspecified, not intractable, without status epilepticus; I24.8 Other forms of acute ischemic heart disease; I25.10 Atherosclerotic heart disease of native coronary artery without angina pectoris; I26.99 Other pulmonary embolism without acute cor pulmonale; J44.9 Chronic obstructive pulmonary disease, unspecified; M47.9 Spondylosis, unspecified; S09.90XA Unspecified injury of head, initial encounter; Z79.01 Long term (current) use of anticoagulants; Z79.899 Other long term (current) drug therapy; Z86.711 Personal history of pulmonary embolism; Z86.718 Personal history of other venous thrombosis and embolism; Z87.891 Personal history of nicotine dependence; Z90.49 Acquired absence of other specified parts of digestive tract; Z99.81 Dependence on supplemental oxygen; Z68.42 Body mass index [BMI] 45.0-49.9, adult; X58.XXXA Exposure to other specified factors, initial encounter
CPT/HCPCS: 36415; 71045; 80048; 80061; 80076; 82550; 83690; 83735; 83880; 84443; 84484; 85025; 85610; 85730; 87426; 87804; 93005; 96365; 96366; 96375; 96376; 99285; G0238; G0378; J2270; J3490; J7120; U0003; G0379

== ENCOUNTER 2021-09-02 06:17 | Emergency (ER) | payer BC, OTHER ==
[~2021-09-02] VITALS: Ht 167.6 cm; Wt 129.0 kg
[~2021-09-02 06:17] MED LIST changes: +CYCL15CA20 PO; +DIPH25CA58 PO; +EMPA10TA3 PO; +MELA3TAB4 PO; +METF500T16 PO; +METO5TAB55 PO
--- NOTE | 2021-09-02 06:30 | EKG ---
[address] [address] Test Date: 2021-09-02 Test Time: 06:29:08 Pat Name: GONZALES PUCKETT Department: Room: Gender: F Nurse Aide: : 1965 Requested By: FILIPPO WATERS Order Number: [id number] Reading MD: Kwan Guajardo Measurements Intervals [place] Rate: 159 P: [place]: QRS: 47 QRSD: 78 T: 48 QT: 272 QTc: 446 Interpretive Statements SUPRAVENTRICULAR TACHYCARDIA Electronically Signed On 09-02-2021 8:57:49 CDT by Kwan Guajardo
--- NOTE | 2021-09-02 06:35 | PHYS DOC ---
Past History Past Medical History: Anxiety, Arrhythmia, CAD, COPD, Diverticulitis, Diabetes, DVT, GERD, Hypertension, Seizure Additional Past Medical Histor: PE Past Surgical History: Other Additional Past Surgical Histo: abdominal surgery Smoking: Non-smoker, Second-hand Alcohol Use: None Drug Use: None General Adult HPI: HPI: Patient is a 56-year-old female brought in by medics from her home for evaluation of chest pain and palpitations and shortness of breath, all of which woke her up this morning, around 5:30 AM. She reports mild dizziness, mild nausea, no vomiting. She denies abdominal pain. She denies syncope or near syncope. She has a reported history of SVT, and she has had similar symptoms previously. She appears to be in atrial fibrillation with RVR. She reports that she feels like her heart is racing and it feels irregular. She has previously received diltiazem. She is anticoagulated with warfarin secondary to chronic lower extremity DVT and multiple PEs. She also is an IVC filter. She reports compliance with all of her medications. She is supposed to wear 2 L per nasal cannula supplemental oxygen at all times. She has history of COPD. She quit smoking many years ago, however she has exposure to secondhand smoke at home. She also admits to frequently not using her oxygen as directed. She denies recent travel, surgery, no recent hospitalizations. Review of Systems: Review of Systems: Constitutional: Denies fever or chills HENT: Denies nasal congestion or sore throat Respiratory: Chronic and unchanged cough. Chronic dyspnea and wheezing. Cardiovascular: No chest pain. Chronic lower extremity edema, unchanged. Reports irregular heart rate, palpitations. Denies syncope. GI: Denies abdominal pain, nausea, vomiting : Denies urinary symptoms Musculoskeletal: Denies back pain or joint pain Integument: Denies rash Neurologic: Denies headache, focal weakness or sensory changes. Reports mild dizziness, no syncope. No numbness or tingling or focal motor weakness. Psychiatric: Denies depression or anxiety Allergies: Allergies: Allergies Coded Allergies Type Severity Reaction Last Updated Verified hydrochlorothiazide Allergy Unknown 06/06/21 Yes hydrocodone Allergy Unknown 06/06/21 Yes triamterene Allergy Unknown 06/06/21 Yes Physical Exam: PE: Constitutional: Well developed, well nourished, no acute distress, non-toxic appearance. She is chronically ill-appearing female, appears older than stated age. Mildly anxious appearing. HENT: Normocephalic, atraumatic Eyes: Sclera are anicteric. Neck: Normal range of motion, no tenderness, supple, no stridor. Trachea is midline. Cardiovascular: Irregularly irregular, heart rate in the 130s to 160s, +2 radial and +2 posterior tibial pulses bilaterally. Rhythm consistent with atrial fibrillation with RVR. Lungs & Thorax: End expiratory wheezes bilaterally, mild tachypnea, no retractions, speaks in full sentences, occasional rhonchi, clear with coughing. No stridor. No cyanosis. Abdomen: Abdomen is obese, soft, nondistended, nontender to palpation. Skin: Warm, dry, no erythema, no rash. [] Back: No tenderness, no CVA tenderness. [] Extremities: No tenderness, no cyanosis, no clubbing, ROM intact, bilateral, symmetric nonpitting lower extremity edema. No calf tenderness. Neurologic: Alert and oriented X 3, normal motor function, normal sensory function, no focal deficits noted. [] Psychologic: Mildly anxious, cooperative. EKG: EKG: EKG is interpreted at 0630 Rhythm is atrial fibrillation with RVR Rate is 159 bpm [place] is normal No STEMI Radiology/Procedures: Radiology/Procedures: IMAGING REPORT Signed PATIENT: GONZALES PUCKETT GACCOUNT: [id number] : 1965 LOCATION: ER AGE: 56 SEX: F EXAM STATUS: REG ER ORD. PHYSICIAN: FILIPPO WATERS DO REASON: chest pain, dyspnea PROCEDURE: PORTABLE CHEST 1V EXAMINATION: Chest radiograph. VIEWS: 1 COMPARISON: 06/06/2021 INDICATION:56 years, Female, chest pain, dyspnea. FINDINGS: Normal cardiomediastinal silhouette. Prominent bilateral yoselyn with cephalization of pulmonary vessels. No focal consolidation. No pleural effusion or pneumothorax. No acute osseous process. IMPRESSION: Findings may suggest pulmonary vascular congestion, without overt edema. Electronically signed by: Ann Lee MD (09/02/2021 7:10 AM) [facility] DICTATED AND SIGNED BY: ANN LEE MD DATE: 09/02/21 0709 CC: FILIPPO WATERS DO; BRIAN WEBB MD ~ Heart Score: C/O Chest Pain: Yes HEART Score for Chest Pain: HEART Score for Chest Pain Response (Comments) Value History Moderately Suspicious 1 ECG Nonspecific Repolarizatio 1 Age >45 - < 65 1 Risk Factors >3 Risk Factors or Hx CAD 2 Total 5 Risk Factors: Risk Factors: DM, Current or recent (<one month) smoker, HTN, HLP, family history of CAD, obesity. Risk Scores: Score 0 - 3: 2.5% MACE over next 6 weeks - Discharge Home Score 4 - 6: 20.3% MACE over next 6 weeks - Admit for Clinical Observation Score 7 - 10: 72.7% MACE over next 6 weeks - Early Invasive Strategies Course & Med Decision Making: Course & Med Decision Making Pertinent Labs and Imaging studies reviewed. (See chart for details) The patient is given a dose of IV diltiazem. After this, she appears to resume normal sinus rhythm heart rate has been in the 70s 80s. Blood pressure stable. Albuterol treatment is given. Lung exam is markedly improved, no further wheezing. She reported that she had chest pain now rating to her left axilla. I offered nitroglycerin, she declined. Serial troponin exams are performed, no significant increase to suggest ACS. I have offered and recommended admission for further observation, serial enzymes, cardiology consultation. The patient adamantly refuses. She reports that she has similar chest pain all the time whenever she has the symptoms. She appears to be in a normal sinus rhythm at this time. I have discussed all of the findings, differential diagnosis and plan of care with her. I strongly recommend she contact her cardiology clinic, as well as her PCP. She verbalized understanding promises that she will return for any worsening symptoms. Dragon Disclaimer: Marquise Disclaimer: This electronic medical record was generated, in whole or in part, using a voice recognition dictation system. Departure Departure: Impression: Primary Impression: Atrial fibrillation Qualified Codes: I48.91 - Unspecified atrial fibrillation Additional Impressions: Chest pain Qualified Codes: R07.9 - Chest pain, unspecified Chronic obstructive pulmonary disease Qualified Codes: J44.9 - Chronic obstructive pulmonary disease, unspecified Disposition: HOME / SELF CARE / HOMELESS Condition: STABLE Referrals: BRIAN WEBB MD (PCP) Patient Instructions: Atrial Fibrillation, Chest Pain (Nonspecific), Supraventricular Tachycardia Additional Instructions: Please return to the ER for more severe pain, more severe shortness of breath, refractory wheezing, coughing up blood, temperature 100.4 or higher, passing out, focal weakness or any other concerns. Continue to take your prescription medication as directed. You may wish to take 2.5 mg of your warfarin tonight instead of the full 3 mg, secondary to your INR being 3.4. Please continue to check your INR at home as scheduled by your primary care doctor. Please contact the cardiology office to arrange for close follow-up. FILIPPO WATERS DO Sep 02, 2021 06:35
[2021-09-02] MEDS ORDERED: dilTIAZem 25 MG/5 ML VIAL IVP ONE (06:45)
[2021-09-02 06:53] LABS: BASO # 0.3 x10^3/uL (0.0-0.2); BASO % 4 % (0-3); EOS # 0.1 x10^3/uL (0.0-0.7); EOS % 2 % (0-3); HEMATOCRIT 55.1 % (36.0-47.0); HEMOGLOBIN 18.5 g/dL (12.0-15.5); LYMPH # 1.6 x10^3/uL (1.0-4.8); LYMPH % 23 % (24-48); MEAN CORPUSCULAR HEMOGLOBIN 36 pg (25-35); MEAN CORPUSCULAR HGB CONC 34 g/dL (31-37); MEAN CORPUSCULAR VOLUME 107 fL (79-100); MONO # 0.6 x10^3/uL (0.0-1.1); MONO % 9 % (0-9); NEUT # 4.3 x10^3uL (1.8-7.7); NEUT % 62 % (31-73); PLATELET COUNT 143 x10^3/uL (140-400); RED BLOOD COUNT 5.14 x10^6/uL (3.50-5.40); RED CELL DISTRIBUTION WIDTH 15.2 % (11.5-14.5); WHITE BLOOD COUNT 6.9 x10^3/uL (4.0-11.0)
[2021-09-02 07:08] LABS: CALCIUM 8.4 mg/dL (8.5-10.1); CREATININE 1.2 mg/dL (0.6-1.0); GFR 46.5; POTASSIUM 4.3 mmol/L (3.5-5.1)
--- NOTE | 2021-09-02 07:13 | RAD ---
EXAMINATION: Chest radiograph. VIEWS: 1 COMPARISON: 06/06/2021 INDICATION:56 years, Female, chest pain, dyspnea. FINDINGS: Normal cardiomediastinal silhouette. Prominent bilateral yoselyn with cephalization of pulmonary vessels . No focal consolidation. No pleural effusion or pneumothorax. No acute osseous process. IMPRESSION: Findings may suggest pulmonary vascular congestion, without overt edema. Electronically signed by: Javan Lee MD (09/02/2021 7:10 AM) [facility]
[2021-09-02 07:23] LABS: ALBUMIN 3.3 g/dL (3.4-5.0); MAGNESIUM 2.1 mg/dL (1.8-2.4); TOTAL BILIRUBIN 0.3 mg/dL (0.2-1.0); TOTAL PROTEIN 6.7 g/dL (6.4-8.2)
[2021-09-02 07:45] LABS: BACTERIA,URINE FEW /HPF (0-FEW); CLARITY,URINE CLEAR; COLOR,URINE YELLOW; GLUCOSE,URINE >=1000 mg/dL (NEG); NITRITE,URINE NEG (NEG); SQUAMOUS EPITHELIAL CELL,UR MANY /LPF; UROBILINOGEN,URINE 0.2 mg/dL (0.2 mg/dL)
[2021-09-02] MEDS ORDERED: ALBUTEROL SULFATE 2.5 MG/3 ML NEBU. NEB ONE (07:45)
[2021-09-02] MEDS ORDERED: NITROGLYCERIN SUBLINGUAL 0.4 MG BOTTLE OF 25. SL PRN (08:45)
[2021-09-02 11:15] VITALS: BP 130/77
== END 2021-09-02 11:15 | disposition home or self-care (01) ==
LOC: ER 06:17
DX: I48.91 Unspecified atrial fibrillation (principal); J44.9 Chronic obstructive pulmonary disease, unspecified; F41.9 Anxiety disorder, unspecified; I25.10 Atherosclerotic heart disease of native coronary artery without angina pectoris; E11.9 Type 2 diabetes mellitus without complications; K21.9 Gastro-esophageal reflux disease without esophagitis; I10 Essential (primary) hypertension; Z86.718 Personal history of other venous thrombosis and embolism; Z77.22 Contact with and (suspected) exposure to environmental tobacco smoke (acute) (chronic); Z88.5 Allergy status to narcotic agent
CPT/HCPCS: 36415; 71045; 80053; 81001; 82550; 83690; 83735; 83880; 84484; 85025; 85610; 85730; 87086; 93005; 94640; 96374; 99285; J3490; J7613